=== PATIENT | male | born 1975 | race Caucasian/White ===

== ENCOUNTER 2020-12-13 15:26 | Emergency (ER) | payer OTHER ==
[~2020-12-13 15:26] MED LIST: BACTROBAN CREAM15 GM TOP; KEFLEX CAP 500500 MG PO; LODINE CAP 300300 MG PO
[2020-12-13 17:14] LABS: HEMOGLOBIN 16.1 gm/dl (14.0-17.5); RED BLOOD COUNT 5.61 M/UL (4.20-5.50); WHITE BLOOD COUNT 8.3 K/UL (4.5-11.0)
[2020-12-13 17:33] LABS: BUN/CREATININE RATIO 13 (0-10)
== END 2020-12-13 20:18 | disposition home or self-care (01) ==
LOC: ER1 15:26
PROVIDERS: Preventive Medicine Occupational Medicine
DX: T44.7X1A Poisoning by beta-adrenoreceptor antagonists, accidental (unintentional), initial encounter (principal); T45.4X1A Poisoning by iron and its compounds, accidental (unintentional), initial encounter; F17.200 Nicotine dependence, unspecified, uncomplicated; Z88.0 Allergy status to penicillin
CPT/HCPCS: 80048; 83540; 85025; 93005; 99283